=== PATIENT | male | born 2000 | race Caucasian/White ===

== ENCOUNTER 2021-01-31 03:13 | Emergency (ER) | payer OTHER ==
[~2021-01-31] VITALS: Ht 177.8 cm; Wt 70.3 kg
[2021-01-31 04:00] VITALS: BP_SYST 109
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
--- NOTE | 2021-01-31 05:36 | NUR ---
Pt eloped from the waiting room.
== END 2021-01-31 05:36 | disposition left against medical advice (07) ==
LOC: SED 03:13
DX: S09.92XA Unspecified injury of nose, initial encounter (principal); Y04.0XXA Assault by unarmed brawl or fight, initial encounter; Y93.89 Activity, other specified; Y92.89 Other specified places as the place of occurrence of the external cause; Y99.8 Other external cause status
CPT/HCPCS: 70450-TC; 70486-TC; 76376; 99285

== ENCOUNTER 2024-01-20 21:55 | Emergency (ER) | payer OTHER ==
[~2024-01-20] VITALS: Ht 177.8 cm; Wt 72.6 kg
[2024-01-20] MEDS ORDERED: AMMONIA 1 EA TOWELETTE INH ONE (22:04)
[2024-01-20 22:06] VITALS: BP_SYST 102; PULSE 66; RESP 14; TEMP 96.8; O2SAT 99
[2024-01-20 23:27] LABS: BASOPHILS % (AUTO) 0.4 % (0.0-2.0); EOSINOPHILS % (AUTO) 0.4 % (0.0-4.0); HEMATOCRIT 42.5 % (36-54); HEMOGLOBIN 14.8 g/dL (14.0-18.0); LYMPHOCYTES # (AUTO) 1.3 K/uL (1.0-5.5); LYMPHOCYTES % (AUTO) 16.6 % (20.5-51.5); MEAN CORPUSCULAR HEMOGLOBIN 31 pg (27-31); MEAN CORPUSCULAR HGB CONC 35 % (32-36); MEAN CORPUSCULAR VOLUME 90 fL (79.0-98.0); MONOCYTES # (AUTO) 0.4 K/uL (0.0-1.0); MONOCYTES % (AUTO) 5.6 % (1.7-9.3); PLATELET COUNT (AUTO) 176 K/uL (130-430); RED BLOOD CELL COUNT(AUTO) 4.74 MIL/uL (4.2-6.2); RED CELL DISTRIBUTION WIDTH 12.7 % (9.0-15.0); WHITE BLOOD COUNT (AUTO) 7.7 K/uL (4.8-10.8)
[2024-01-20 23:41] LABS: BILIRUBIN,DIRECT 0.1 mg/dL (0.0-0.3); CALCIUM 8.5 mg/dL (8.4-11.0); CREATININE 0.86 mg/dL (0.55-1.30); POTASSIUM 4.1 mmol/L (3.5-5.1); TOTAL BILIRUBIN 0.3 mg/dL (0.0-1.0); TOTAL PROTEIN, SERUM 7.1 g/dL (6.4-8.3)
[2024-01-21 00:19] VITALS: BP_SYST 102; PULSE 66; RESP 14; TEMP 96.8; O2SAT 99
== END 2024-01-21 00:19 | disposition home or self-care (01) ==
LOC: SED 21:55
DX: F10.10 Alcohol abuse, uncomplicated (principal); F17.200 Nicotine dependence, unspecified, uncomplicated; Y90.6 Blood alcohol level of 120-199 mg/100 ml
CPT/HCPCS: 99283; 80076; 80048; 85025; 36415; G0482